=== PATIENT | female | born 2000 | race African-American/Black ===

== ENCOUNTER 2023-12-26 04:20 | Inpatient (IN) ==
[2023-12-26 05:09] LABS: ABS Eosinophils 0.1 10^3/uL (0.0-0.5); ABS Lymphocytes 2.3 10^3/uL (1.0-4.8); ABS Monocytes 0.6 10^3/uL (0.0-0.9); ABS Nucleated RBC 0.01 10^3/ul; Eosinophil % 1.6 %; Hematocrit 37.6 % (35-45); Hemoglobin 12.6 g/dL (11.5-14.3); Lymphocyte % 32.9 %; Mean Corpuscular Hemoglobin 29.2 pg (27-33); Mean Corpuscular Hgb Conc 33.4 g/dL (31-36); Mean Corpuscular Volume 87.6 fL (80-97); Mean Platelet Volume 8.6 fL (7.5-11.2); Nucleated Red Blood Cells % 0.1 %/100WBC (0.0-0.8); Platelet Count 231 10^3/uL (150-450); Red Blood Count 4.29 10^6/uL (3.63-4.92); Red Cell Distribution Width 13.7 % (12-17)
[2023-12-26 05:20] LABS: Urine Appearance Clear; Urine Bilirubin Negative (Negative); Urine Blood Negative (Negative); Urine Color Light-Yellow; Urine Glucose Negative (Negative); Urine Ketones Negative (Negative); Urine Nitrite Negative (Negative); Urine Protein Negative (Negative); Urine Specific Gravity 1.012 (1.002-1.030); Urine Urobilinogen Negative (Negative); Urine pH 6.5 (5.0-8.0)
[2023-12-26 05:28] LABS: Urine Benzodiazepine Screen None Detected (None Detect); Urine Cannabinoids Screen None Detected (None Detect); Urine Opiates Screen None Detected (None Detect)
[2023-12-26 05:29] LABS: ALT 19 U/L (7-52); AST 21 U/L (13-39); Acetaminophen 18 mcg/mL; Albumin 4.3 g/dL (3.2-5.2); Albumin/Globulin Ratio 1.7 (1-3); Alcohol, S 178 mg/dL (<13); Alkaline Phosphatase 62 U/L (35-149); Anion Gap 12 mmol/L (2-16); Blood Urea Nitrogen 12 mg/dL (6-24); CO2 Carbon Dioxide 30 mmol/L (22-32); Calcium 9.5 mg/dL (8.6-10.3); Chloride 102 mmol/L (101-111); Creatinine, Serum 0.76 mg/dL (0.51-0.95); Globulin 2.6 g/dL (2-4); Glucose 86 mg/dL (70-100); Potassium 3.5 mmol/L (3.5-5.0); Salicylate < 2.50 mg/dL (<30); Sodium 144 mmol/L (135-145); Total Bilirubin 0.3 mg/dL (0.2-1.0); Total Protein 6.9 g/dL (6.4-8.9); eGFR CKD-EPI 113.6 (>60)
[2023-12-26 05:49] LABS: Urine Bacteria Absent /HPF (Absent); Urine Red Blood Cell Trace(0-2/hpf) /HPF (0-Trace); Urine Squamous Epithelial Cell Present /HPF (Absent); Urine White Blood Cell 1+(6-10/hpf) /HPF (0-Trace)
[2023-12-26 06:11] LABS: HCG Pregnancy < 0.60 mIU/mL
[2023-12-26 06:19] LABS: TSH Ultra Thyroid Stim Horm 1.66 mcIU/mL (0.34-5.60)
[2023-12-26] MEDS ORDERED: Al Hydrox/Mg Hydrox/Simet LIQ 30 ML UDC PO PRN (17:30)
[2023-12-27] MEDS: Vitamin THERAPEUTIC TAB PO SCH (10:34)
[2023-12-30 08:48] VITALS: BP 113/54
== END 2023-12-30 13:00 | disposition home or self-care (01) | DRG 754 ==
LOC: ED 04:20 → BSU 14:17
PROVIDERS: ADMIT Psychiatry & Neurology Addiction Psychiatry; ATTEND Student in an Organized Health Care Education/Training Program